=== PATIENT | female | born 1950 | race Hispanic/Latino ===

== ENCOUNTER 2017-11-22 09:31 | Emergency (ER) | payer SELFPAY ==
--- NOTE | 2017-11-22 10:27 | EDPHYS ---
Physician Documentation [facility] Name: Mihaela Grace Age: 67 yrs Sex: Female : 1950 Arrival Date: 11/22/2017 Time: 09:33 Bed 8 Private MD: ED Physician George Sanchez HPI: 11/22 10:21 This 67 yrs old Female presents to ER via Ambulatory with complaints of Sore Throat. gs 10:21 The patient presents with sore throat. The patient describes throat pain as raw. Onset: gs The symptoms/episode began/occurred acutely, 1 week(s) ago. Severity of symptoms: At their worst the symptoms were moderate, in the emergency department the symptoms are unchanged. Modifying factors: the symptoms are aggravated by swallowing, Patient's oral intake status: good. Associated signs and symptoms: Pertinent negatives fever. The patient has not experienced similar symptoms in the past. Historical: - Allergies: 09:43 No Known Allergies; jl7 - Home Meds: 09:43 None [Active]; jl7 - PMHx: :43 None; jl7 - PSHx: 09:43 None; jl7 - Immunization history:: Adult Immunizations unknown. - Social history:: Smoking status: Patient/guardian denies using tobacco. - Ebola Screening: : No symptoms or risks identified at this time. ROS: 10:21 All other systems are negative. gs Exam: 10:21 Head/Face: Normocephalic, atraumatic. Eyes: Pupils equal round and reactive to light, gs extra-ocular motions intact. Lids and lashes normal. Conjunctiva and sclera are non-icteric and not injected. Cornea within normal limits. Periorbital areas with no swelling, redness, or edema. Chest/axilla: Normal chest wall appearance and motion. Nontender with no deformity. No lesions are appreciated. Cardiovascular: Regular rate and rhythm with a normal S1 and S2. No gallops, murmurs, or rubs. Normal PMI, no JVD. No pulse deficits. Respiratory: Lungs have equal breath sounds bilaterally, clear to auscultation and percussion. No rales, rhonchi or wheezes noted. No increased work of breathing, no retractions or nasal flaring. Abdomen/GI: Soft, non-tender, with normal bowel sounds. No distension or tympany. No guarding or rebound. No evidence of tenderness throughout. Back: No spinal tenderness. No costovertebral tenderness. Full range of motion. Skin: Warm, dry with normal turgor. Normal color with no rashes, no lesions, and no evidence of cellulitis. MS/ Extremity: Pulses equal, no cyanosis. Neurovascular intact. Full, normal range of motion. Neuro: Awake and alert, GCS 15, oriented to person, place, time, and situation. Cranial nerves II-XII grossly intact. Motor strength 5/5 in all extremities. Sensory grossly intact. Cerebellar exam normal. Normal gait. 10:21 Constitutional: The patient appears alert, awake. 10:21 ENT: Posterior pharynx: no acute changes, Airway: normal, swelling, is not appreciated, erythema, is not appreciated, exudate, is not appreciated. 10:21 Neck: External neck: mass, is not appreciated, ROM/movement: is normal. Vital Signs: 09:43 BP 160 / 81; Pulse 82; Resp 16 S; Temp 97.9(O); Pulse Ox 99% on R/A; Weight 54.43 kg jl7 (R); Height 5 ft. 2 in. (157.48 cm) (R); Pain 10/10; 10:35 BP 140 / 71; Pulse 73; Resp 16 S; Pulse Ox 97% on R/A; jl7 09:43 Body Mass Index 21.95 (54.43 kg, 157.48 cm) jl7 MDM: 09:45 Patient medically screened. 10:21 Differential diagnosis: group A strep tonsillitis, pharyngitis, viral syndrome. Data reviewed: vital signs, nurses notes. 10:27 Counseling: I had a detailed discussion with the patient and/or guardian regarding: the gs presence of at least one elevated blood pressure reading (>120/80) during this emergency department visit. Special discussion: I have referred the patient to see his PCP for further evaluation of high blood pressure. 11/22 09:45 Order name: Strep; Complete Time: 10:18 11/22 10:18 Order name: Throat Culture EDMS Administered Medications: No medications were administered Disposition: 11/22/17 10:26 Discharged to Home. Impression: Acute pharyngitis. - Condition is Stable. - Discharge Instructions: Pharyngitis, [id number]. - Medication Reconciliation Form, Thank You Letter, Antibiotic Education, Prescription Opioid Use form. - Follow up: Suzan Jackson MD; When: 2 - 3 days; Reason: Re-evaluation by your physician. Signatures: Dispatcher [employer] Eloy Weber RN RN jl7 George Sanchez MD MD gs Corrections: (The following items were deleted from the chart) 10:36 10:26 11/22/2017 10:26 Discharged to Home. Impression: Acute pharyngitis. Condition is jl7 Stable. Forms are Medication Reconciliation Form, Thank You Letter, Antibiotic Education, Prescription Opioid Use. Follow up: Suzan Jackson; When: 2 - 3 days; Reason: Re-evaluation by your physician. gs
--- NOTE | 2017-11-22 10:27 | ER ---
Nurse's Notes [facility] Name: Mihaela Grace Age: 67 yrs Sex: Female : 1950 Arrival Date: 11/22/2017 Time: 09:33 Bed 8 Private MD: Diagnosis: Acute pharyngitis Presentation: 11/22 09:41 Presenting complaint: Patient states: Right sided throat pain x 1 week. Transition of jl7 care: patient was not received from another setting of care. Onset of symptoms was November 15, 2017. Risk Assessment: Do you want to hurt yourself or someone else? Patient reports no desire to harm self or others. Initial Sepsis Screen: Does the patient meet any 2 criteria? No. Patient's initial sepsis screen is negative. Does the patient have a suspected source of infection? No. Patient's initial sepsis screen is negative. Care prior to arrival: None. 09:41 Method Of Arrival: Ambulatory jl7 09:41 Acuity: BENJAMIN 4 jl7 Triage Assessment: 09:43 General: Appears in no apparent distress. uncomfortable, Behavior is calm, cooperative, jl7 appropriate for age. Pain: Complains of pain in right aspect of posterior pharynx Pain does not radiate. Pain currently is 10 out of 10 on a pain scale. Quality of pain is described as "Sore. It hurts when I swallow." Pain began 1 week ago Is continuous. EENT: Throat is clear Cervical nodes enlarged bilaterally. Neuro: Level of Consciousness is awake, alert, obeys commands. Cardiovascular: Patient's skin is warm and dry. Respiratory: Airway is patent Respiratory effort is even, unlabored, Respiratory pattern is regular, symmetrical. GI: No signs and/or symptoms were reported involving the gastrointestinal system. : No signs and/or symptoms were reported regarding the genitourinary system. Derm: Skin is pink, warm \\T\\ dry. Musculoskeletal: No signs and/or symptoms reported regarding the musculoskeletal system. Historical: - Allergies: :43 No Known Allergies; jl7 - Home Meds: :43 None [Active]; jl7 - PMHx: :43 None; jl7 - PSHx: :43 None; jl7 - Immunization history:: Adult Immunizations unknown. - Social history:: Smoking status: Patient/guardian denies using tobacco. - Ebola Screening: : No symptoms or risks identified at this time. Screenin:47 Abuse screen: Denies threats or abuse. Denies injuries from another. Nutritional jl7 screening: No deficits noted. Tuberculosis screening: No symptoms or risk factors identified. Fall Risk None identified. Assessment: 09:47 General: See triage assessment. Neuro: Level of Consciousness is awake, alert, obeys jl7 commands. Vital Signs: 09:43 BP 160 / 81; Pulse 82; Resp 16 S; Temp 97.9(O); Pulse Ox 99% on R/A; Weight 54.43 kg jl7 (R); Height 5 ft. 2 in. (157.48 cm) (R); Pain 10/10; 10:35 BP 140 / 71; Pulse 73; Resp 16 S; Pulse Ox 97% on R/A; jl7 09:43 Body Mass Index 21.95 (54.43 kg, 157.48 cm) jl7 ED Course: 09:33 Patient arrived in ED. mr 09:35 Eloy Godfrey RN is Primary Nurse. jl7 09:36 George Sanchez MD is Attending Physician. gs 09:42 Triage completed. jl7 09:43 Arm band placed on right wrist. jl7 09:47 Bed in low position. Call light in reach. Side rails up X 1. Pulse ox on. NIBP on. jl7 10:05 Strep swab sent to lab. jl7 10:26 Suzan Jackson MD is Referral Physician. gs 10:35 No provider procedures requiring assistance completed. Patient did not have IV access jl7 during this emergency room visit. Administered Medications: No medications were administered Outcome: 10:26 Discharge ordered by . gs 10:35 Discharged to home ambulatory. jl7 10:35 Condition: stable 10:35 Discharge instructions given to patient, family, Instructed on discharge instructions, follow up and referral plans. Demonstrated understanding of instructions, follow-up care. 10:36 Patient left the ED. jl7 Signatures: Mechelle Gamboa mr Eloy Godfrey, ALY RN jl7 George Sanchez MD MD
== END 2017-11-22 10:36 | disposition home or self-care (01) ==
LOC: ER 09:31
DX: J02.9 Acute pharyngitis, unspecified (principal)
CPT/HCPCS: 87070; 87081; 99283

== ENCOUNTER 2018-02-04 09:54 | Emergency (ER) | payer SELFPAY ==
[2018-02-04] MEDS ORDERED: TETANUS & DIPHTHERIA TOX,ADULT 0.5 ML VIAL ONE (11:43)
--- NOTE | 2018-02-04 11:48 | RAD REPORT ---
EXAM DESCRIPTION: RAD - Hand Right 3 View - 02/04/2018 11:39 am CLINICAL HISTORY: Pain;Swelling COMPARISON: No comparisons FINDINGS: Soft tissue swelling is seen along the dorsum of the hand. No fracture is seen.
--- NOTE | 2018-02-04 12:05 | ER ---
Nurse's Notes [facility] Name: Mihaela Grace Age: 67 yrs Sex: Female : 1950 Arrival Date: 02/04/2018 Time: 09:56 Bed 19 Private MD: Diagnosis: Sprain of other part of right wrist and hand;Sprain of unspecified part of right wrist and hand;Abrasion, right knee Presentation: 02/04 09:59 Presenting complaint: Patient states: "I tripped and fell yesterday taking out the aa5 trash". Pt c/o swelling and pain to right hand. Abrasion noted to right knee. Denies LOC, denies head injury. Transition of care: patient was not received from another setting of care. Onset of symptoms was January 2018. Risk Assessment: Do you want to hurt yourself or someone else? Patient reports no desire to harm self or others. Initial Sepsis Screen: Does the patient meet any 2 criteria? No. Patient's initial sepsis screen is negative. Does the patient have a suspected source of infection? No. Patient's initial sepsis screen is negative. Care prior to arrival: None. 09:59 Method Of Arrival: Wheelchair aa5 09:59 Acuity: BENJAMIN 4 aa5 Historical: - Allergies: 10:00 No Known Allergies; aa5 - PMHx: 10:00 None; aa5 - PSHx: 10:00 None; aa5 - Immunization history:: Adult Immunizations unknown. - Social history:: Smoking status: Patient/guardian denies using tobacco. - Ebola Screening: : No symptoms or risks identified at this time. Screenin:18 Abuse screen: Denies threats or abuse. Denies injuries from another. Nutritional aj screening: No deficits noted. Tuberculosis screening: No symptoms or risk factors identified. Fall Risk None identified. Assessment: 10:18 General: Appears in no apparent distress. comfortable, Behavior is calm, cooperative, aj appropriate for age. Pain: Complains of pain in right hand, right knee, right pagan and anterior aspect of right ankle. Neuro: Level of Consciousness is awake, alert, obeys commands, Oriented to person, place, time, situation, Appropriate for age. Respiratory: Airway is patent Respiratory effort is even, unlabored, Respiratory pattern is regular, symmetrical. GI: No signs and/or symptoms were reported involving the gastrointestinal system. Derm: Skin is pink, warm \\T\\ dry. Musculoskeletal: Swelling present in right hand Reports pain in right hand. Injury Description: Abrasion sustained to right knee and right pagan. Vital Signs: 10:00 BP 144 / 74; Pulse 75; Resp 16 S; Temp 98.4(TE); Pulse Ox 97% on R/A; Pain 10/10; aa5 10:18 BP 134 / 63; Pulse 74; Resp 16; Pulse Ox 97% on R/A; aj 11:50 BP 153 / 68; Pulse 69; Resp 17; Pulse Ox 97% on R/A; aj ED Course: 09:56 Patient arrived in ED. mr 10:00 Triage completed. aa5 10:02 Arm band placed on Patient placed in an exam room, on a stretcher. aa5 10:18 Juana Ku, RN is Primary Nurse. aj 10:18 Patient has correct armband on for positive identification. aj 10:33 Demetrio Ramon MD is Attending Physician. kdr 11:40 Hand Right 3 View XRAY In Process Unspecified. EDMS 13:06 No provider procedures requiring assistance completed. Patient did not have IV access jl7 during this emergency room visit. Administered Medications: 11:42 Drug: Tetanus-Diphtheria Toxoid Adult 0.5 ml {[employer]. Exp: aj 02/12/2020. Lot #: [id number]. } Route: IM; Site: left deltoid; 12:50 Follow up: Response: No adverse reaction sarah Outcome: 12:05 Discharge ordered by . kdr 13:06 Discharged to home ambulatory, with family. jl7 13:06 Condition: stable 13:06 Discharge instructions given to patient, family, Instructed on discharge instructions, follow up and referral plans. Demonstrated understanding of instructions, follow-up care. 13:07 Patient left the ED. jl7 Signatures: Dispatcher [employer] EDMS Juana Ku RN RN aj Rittger, Kevin, MD MD kdr Rivera, Maria mr Calderon, Audri, RN RN Eloy Burnett RN RN jl7 Corrections: (The following items were deleted from the chart) 13:07 13:06 Discharge instructions given to patient, family, Instructed on discharge jl7 instructions, follow up and referral plans. medication usage, Demonstrated understanding of instructions, follow-up care, medications, Prescriptions given X 2, jl7
--- NOTE | 2018-02-04 12:05 | EDPHYS ---
Physician Documentation [facility] Name: Mihaela Grace Age: 67 yrs Sex: Female : 1950 Arrival Date: 02/04/2018 Time: 09:56 Bed 19 Private MD: ED Physician Demetrio Ramon HPI: 02/04 17:00 This 67 yrs old Female presents to ER via Wheelchair with complaints of Hand kdr Swelling. 17:00 The patient or guardian reports a contusion, decreased range of motion, deformity, kdr injury, pain, swelling, tenderness. The complaints affect the right hand diffusely. Context: The problem was sustained at home, resulted from a fall, while walking, on an outstretched hand. Onset: The symptoms/episode began/occurred suddenly, yesterday. Modifying factors: The symptoms are alleviated by nothing, the symptoms are aggravated by movement. Associated signs and symptoms: The patient has no apparent associated signs or symptoms. Associated signs and symptoms: Pertinent positives: Abrasion to right knee. Severity of symptoms: At their worst the symptoms were mild, in the emergency department the symptoms are unchanged. The patient has not experienced similar symptoms in the past. The patient has not recently seen a physician. Historical: - Allergies: 10:00 No Known Allergies; aa5 - PMHx: 10:00 None; aa5 - PSHx: 10:00 None; aa5 - Immunization history:: Adult Immunizations unknown. - Social history:: Smoking status: Patient/guardian denies using tobacco. - Ebola Screening: : No symptoms or risks identified at this time. ROS: 17:00 Constitutional: Negative for fever, chills, and weight loss, Eyes: Negative for injury, kdr pain, redness, and discharge, Neck: Negative for injury, pain, and swelling, Cardiovascular: Negative for chest pain, palpitations, and edema, Respiratory: Negative for shortness of breath, cough, wheezing, and pleuritic chest pain, Abdomen/GI: Negative for abdominal pain, nausea, vomiting, diarrhea, and constipation, Back: Negative for injury and pain, : Negative for injury, bleeding, discharge, and swelling, Skin: Negative for injury, rash, and discoloration - has abrasion to the right knee Neuro: Negative for headache, weakness, numbness, tingling, and seizure activity. 17:00 MS/extremity: Positive for abrasion, contusion, decreased range of motion, swelling. Exam: 17:00 Constitutional: This is a well developed, well nourished patient who is awake, alert, kdr and in no acute distress. Head/Face: Normocephalic, atraumatic. Eyes: Pupils equal round and reactive to light, extra-ocular motions intact. Lids and lashes normal. Conjunctiva and sclera are non-icteric and not injected. Cornea within normal limits. Periorbital areas with no swelling, redness, or edema. Neck: Trachea midline, no thyromegaly or masses palpated, and no cervical lymphadenopathy. Supple, full range of motion without nuchal rigidity, or vertebral point tenderness. No Meningismus. Chest/axilla: Normal chest wall appearance and motion. Nontender with no deformity. No lesions are appreciated. Cardiovascular: Regular rate and rhythm with a normal S1 and S2. No gallops, murmurs, or rubs. Normal PMI, no JVD. No pulse deficits. Respiratory: Lungs have equal breath sounds bilaterally, clear to auscultation and percussion. No rales, rhonchi or wheezes noted. No increased work of breathing, no retractions or nasal flaring. Abdomen/GI: Soft, non-tender, with normal bowel sounds. No distension or tympany. No guarding or rebound. No evidence of tenderness throughout. Back: No spinal tenderness. No costovertebral tenderness. Full range of motion. Neuro: Awake and alert, GCS 15, oriented to person, place, time, and situation. Cranial nerves II-XII grossly intact. Motor strength 5/5 in all extremities. Sensory grossly intact. Cerebellar exam normal. Normal gait. Psych: Awake, alert, with orientation to person, place and time. Behavior, mood, and affect are within normal limits. 17:00 Musculoskeletal/extremity: Extremities: grossly normal except: noted in the lateral aspect of left hand, medial aspect of left hand and dorsum of left hand: 17:00 Skin: injury, abrasion(s), small abrasion noted, of the lateral aspect of right knee and right knee. Vital Signs: 10:00 BP 144 / 74; Pulse 75; Resp 16 S; Temp 98.4(TE); Pulse Ox 97% on R/A; Pain 10/10; aa5 10:18 BP 134 / 63; Pulse 74; Resp 16; Pulse Ox 97% on R/A; aj 11:50 BP 153 / 68; Pulse 69; Resp 17; Pulse Ox 97% on R/A; aj MDM: 12:05 Patient medically screened. kdr 17:00 Data reviewed: vital signs, nurses notes, lab test result(s), radiologic studies. kdr Counseling: I had a detailed discussion with the patient and/or guardian regarding: the historical points, exam findings, and any diagnostic results supporting the discharge/admit diagnosis, lab results, radiology results, the need for outpatient follow up. 02/04 11:21 Order name: Hand Right 3 View XRAY; Complete Time: 12:02 kdr 02/04 11:21 Order name: Misc. Order: Clean and dress knee wound; Complete Time: 12:47 kdr 02/04 12:03 Order name: Splint - Volar Wrist Splint; Complete Time: 12:50 kdr Administered Medications: 11:42 Drug: Tetanus-Diphtheria Toxoid Adult 0.5 ml {[facility] Rn: [employer]. Exp: aj 02/12/2020. Lot #: [id number]. } Route: IM; Site: left deltoid; 12:50 Follow up: Response: No adverse reaction Disposition: 02/04/18 12:05 Discharged to Home. Impression: Sprain of other part of right wrist and hand, Sprain of unspecified part of right wrist and hand, Abrasion, right knee. - Condition is Stable. - Discharge Instructions: Abrasion, [id number], Wrist Sprain. - Medication Reconciliation Form, Thank You Letter, Antibiotic Education form. - Follow up: Private Physician; When: 2 - 3 days; Reason: If symptoms return, Further diagnostic work-up, Recheck today's complaints, Continuance of care, Re-evaluation by your physician. Signatures: Dispatcher [employer] Juana Yarbrough RN RN aj Rittger, Kevin, MD MD kdr Calderon, Audri, RN RN aa5 Eloy Godfrey RN RN jl7 Corrections: (The following items were deleted from the chart) 13:07 12:05 02/04/2018 12:05 Discharged to Home. Impression: Sprain of other part of right jl7 wrist and hand; Sprain of unspecified part of right wrist and hand; Abrasion, right knee. Condition is Stable. Forms are Medication Reconciliation Form, Thank You Letter, Antibiotic Education, Prescription Opioid Use. Follow up: Private Physician; When: 2 - 3 days; Reason: If symptoms return, Further diagnostic work-up, Recheck today's complaints, Continuance of care, Re-evaluation by your physician. kdr
== END 2018-02-04 13:07 | disposition home or self-care (01) ==
LOC: ER 09:54
DX: S63.8X1A Sprain of other part of right wrist and hand, initial encounter (principal); S80.211A Abrasion, right knee, initial encounter; W18.30XA Fall on same level, unspecified, initial encounter; Y93.01 Activity, walking, marching and hiking; Y92.009 Unspecified place in unspecified non-institutional (private) residence as the place of occurrence of the external cause; Z23 Encounter for immunization
CPT/HCPCS: 90714; 99283